=== PATIENT | male | born 1975 | race Caucasian/White ===

== ENCOUNTER → 2016-06-06 | Outpatient (CLI) | payer SELFPAY ==
--- NOTE | 2016-06-06 08:55 | STRESSTEST ---
[facility] Interpretive Statements patient exercised according to Pierce protocol for 9.4 min, baseline BP was 120/88 heart rate was 108 baseline EKG was normal, maximum BP was 198/52, maximum heart rate was 180 his target was 150 beats/ min, METs 10.6, test stopped because of fatigue. NO EKG changes noted., Conclusion Negative stress test. Electronically Signed On 06-06-16 09:43:06 [facility] by Sergio Oneill MD [email or web address]
== END ==
LOC: EKG 07:52
PROVIDERS: ATTEND Family Medicine
DX: R07.9 Chest pain, unspecified (principal)
CPT/HCPCS: 93016; 93017; 93018

== ENCOUNTER → 2016-07-16 | Outpatient (CLI) | payer SELFPAY ==
--- NOTE | 2016-07-16 09:43 | DI ---
PA /LATERAL CHEST X-RAY, 07/16/2016 8:33 AM : Clinical History: Cough Previous Exam: October 04, 2013 There is no acute soft tissue or bony abnormality. Heart size is normal. Lungs are clear. Mediastinal structures are normal. There are no pulmonary nodules. IMPRESSION: Normal chest x-ray.
== END ==
LOC: MOB RAD 08:37
PROVIDERS: ATTEND Physician Assistant
DX: R05 Cough (principal); R06.02 Shortness of breath
CPT/HCPCS: 71020